=== PATIENT | male | born 1995 | race Caucasian/White ===

== ENCOUNTER 2016-08-18 19:21 | Emergency (ER) | payer OTHER ==
[~2016-08-18] VITALS: Ht 177.8 cm; Wt 61.2 kg
[2016-08-18 20:23] VITALS: BP 134/72
== END 2016-08-18 21:06 | disposition home or self-care (01) ==
LOC: ER 19:27
DX: N50.812 Left testicular pain (principal)
CPT/HCPCS: 99282; A4606; Z7610